=== PATIENT | female | born 1940 | race American Indian/Alaskan Native ===

== ENCOUNTER 2021-08-01 10:48 | Outpatient (CLI) | payer MEDICARE ==
--- NOTE | 2021-08-04 12:39 | Mammography Report ---
DIGITAL SCREENING MAMMOGRAM WITH CAD, 08/01/2021 CLINICAL INFORMATION / INDICATION: Routine screening mammography. TECHNIQUE: Digital bilateral 2D mammography was obtained in the craniocaudal and mediolateral obliqu e projections. This examination was interpreted with the benefit of Computer-Aided Detection analysis . COMPARISON: 06/28/2020, 12/06/2018 FINDINGS: Breast Density: The breasts are heterogeneously dense, which may obscure small masses. No dominant mass, suspicious calcifications, or architectural distortion in the right breast. There i s new asymmetry noted in the superior left breast, seen only on MLO view. Spot compression views are recommended for further evaluation. Left breast biopsy clip is again noted. IMPRESSION: New asymmetry noted in the superior left breast. Recommend spot compression imaging with possible left breast ultrasound. Follow up recommendation: Special View: Spot Compression BI-RADS Category 0: INCOMPLETE. Needs additional imaging evaluation and/or prior mammograms for zoë quispe. A "normal" or negative report should not discourage follow up or biopsy of a clinically significant f inding. A written summary of these findings will be mailed to the patient. The patient will be entered into a mammography reporting system which will generate a reminder letter for the patient's next appointmen t at the appropriate interval. The [employer] recommends yearly mammograms starting at age 40 and continuing as l marium as a woman is in good health. Breast MRI is recommended for women with an approximate 20-25% or greater lifetime risk of breast cancer, including women with a strong family history of breast or ova [place] cancer or who have been treated for Hodgkin's disease. Signer Name: Bisi Mcgowan MD Signed: 08/04/2021 12:35 PM Workstation Name: [email or web address]
== END 2021-08-01 10:49 | disposition home or self-care (01) ==
LOC: MAMMO 10:48
DX: Z12.31 Encounter for screening mammogram for malignant neoplasm of breast (principal)
CPT/HCPCS: 77067

== ENCOUNTER 2021-09-05 09:12 | Outpatient (CLI) | payer MEDICARE ==
--- NOTE | 2021-09-05 11:19 | Mammography Report ---
DIGITAL DIAGNOSTIC MAMMOGRAM WITH CAD CONVENTIONAL, 09/05/2021 CLINICAL INFORMATION / INDICATION: Abnormal screening mammogram. Screening recall of the left breast for asymmetry. TECHNIQUE: Digital left mammographic imaging was performed. Spot compression views were obtained. This examination was interpreted with the benefit of Computer-aided Detection analysis. COMPARISON: Bilateral mammogram, 08/01/2021, 06/28/2020, 12/06/2017 and 09/11/2017 FINDINGS: Breast Density: The breasts are heterogeneously dense, which may obscure small masses. Spot compression views demonstrate complete resolution of the previously noted asymmetry in the super ior aspect of the left breast. No suspicious mammographic finding is identified. The appearance of th e breast parenchyma is unchanged when compared to multiple prior studies. IMPRESSION: No mammographic evidence of malignancy. Follow up recommendation: Routine yearly screening mammogram. BI-RADS Category 1: NEGATIVE. A "normal" or negative report should not discourage follow up or biopsy of a clinically significant f inding. A written summary of these findings will be mailed to the patient. The patient will be entered into a mammography reporting system which will generate a reminder letter for the patient's next appointmen t at the appropriate interval. According to the [employer], yearly mammograms are recommended starting at age 40 and continuing as long as a woman is in good health. Breast MRI is recommended for women with an kaleb roximately 20-25% or greater lifetime risk of breast cancer, including women with a strong family his tory of breast or ovarian cancer and women who have been treated for Hodgkin's disease. Signer Name: Lula Weir MD Signed: 09/05/2021 11:12 AM Workstation Name: [email or web address]
== END 2021-09-05 09:13 | disposition home or self-care (01) ==
LOC: MAMMO 09:12
DX: R92.8 Other abnormal and inconclusive findings on diagnostic imaging of breast (principal)